=== PATIENT | male | born 1990 | race Caucasian/White ===

== ENCOUNTER 2021-02-24 23:31 | Emergency (ER) | payer SELFPAY ==
[2021-02-25] MEDS ORDERED: Silver Sulfadiazine 1% Crm 50 GM Tube TOP ONE ×2 (00:22→00:45)
[2021-02-25] MEDS ORDERED: Ketorolac 30 MG/ML SDV ONE (00:33)
[2021-02-25] MEDS ORDERED: Diphtheria,Pertussis(Acell),Tetanus Vaccine 0.5 ML Syringe IM ONE (00:33)
[2021-02-25] MEDS ORDERED: Ketorolac 30 MG/ML SDV IM ONE (00:46)
[2021-02-25] MEDS: Diphtheria,Pertussis(Acell),Tetanus Vaccine 0.5 ML Syringe ONE ×2 (00:52→19:31)
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
== END 2021-02-25 01:26 | disposition home or self-care (01) ==
LOC: MW.ED 23:31
DX: T23.221A Burn of second degree of single right finger (nail) except thumb, initial encounter (principal); T23.201A Burn of second degree of right hand, unspecified site, initial encounter; X08.8XXA Exposure to other specified smoke, fire and flames, initial encounter; Z23 Encounter for immunization
CPT/HCPCS: 16020; 90471; 90715; 96372; 99283; A9270; J1885